=== PATIENT | female | born 1990 | race American Indian/Alaskan Native ===

== ENCOUNTER 2017-07-05 09:26 | Outpatient (CLI) | payer MEDICAID ==
--- NOTE | 2017-07-05 12:04 | Ultrasound Report ---
LIMITED OB ULTRASOUND: well-being. Gestation: [place] Position: Cephalic OBDULIA = 13.4 cm Heart Rate: 133 BPM Estimated gestational age is 39 weeks 0 days. BIOPHYSICAL PROFILE: 2 - breathing movements 2 - movements 2 - posture and tone 2 - Qualitative amniotic fluid volume 8 - TOTAL SCORE OF POSSIBLE 8 Heart Rate (bpm) 133
== END 2017-07-05 12:40 | disposition home or self-care (01) ==
LOC: TRG 09:26
PROVIDERS: ATTEND Obstetrics & Gynecology
DX: Z34.93 Encounter for supervision of normal pregnancy, unspecified, third trimester (principal); Z3A.39 39 weeks gestation of pregnancy
CPT/HCPCS: 59025; 76815; 76819

== ENCOUNTER 2017-07-07 22:19 | Inpatient (IN) | payer MEDICAID ==
[2017-07-07] MEDS ORDERED: BICITRA PO ONE (23:23)
[2017-07-07] MEDS ORDERED: PEPCID IV ONE (23:23)
[2017-07-07] MEDS ORDERED: REGLAN IV ONE (23:23)
[2017-07-07] MEDS ORDERED: LACTATED RINGERS 2,000 ML ONE (23:29)
--- NOTE | 2017-07-07 23:39 | History and Physical Report ---
History of Present Illness Date of examination: 07/07/17 Date of admission: 07/07/17 23:24 Chief complaint: Labor History of present illness: Pt is a 26yo BF EDC 07/12/17; EGA 39 2/7 weeks presents to [facility]&D complaining of RUC's q 3-4 mins. She received care at [facility] since 6 weeks and is scheduled for a Repeat C Section on 07/10/17, however we will proceed with a repeat C Section today since she is currently in labor and declines a . course has been complicated by Vitamin D deficiency and GDM which has been diet controlled and followed by [facility]. records are available and GBS is unknown. Past History Past Medical History: diabetes (GDM), other (anxiety disorder) Past Surgical History: section Family/Genetic History: diabetes, hypertension Social history: no significant social history, single - Obstetrical History Expected Date of Delivery: 07/12/17 Actual Gestation: 39 Week(s) 3 Day(s) : 2 Medications and Allergies Allergies Allergy/AdvReac Type Severity Reaction Status Date / Time No Known Allergies Allergy Verified 04/03/15 00:20 Home Medications Medication Instructions Recorded Confirmed Last Taken Type Ibuprofen [Motrin 800 MG tab] 800 mg PO Q8HR PRN #90 tablet 07/06/15 07/20/15 Rx 1 TAB oxyCODONE /ACETAMINOPHEN [Percocet 1 tab PO Q6HR PRN #30 tablet 07/06/1507/10/15 Rx 5/325 mg] 1 TAB Labetalol [Normodyne TAB] 200 mg PO BID #60 tablet 07/21/15 Unknown Rx Ferrous Sulfate [Feosol 325 MG tab] 325 mg PO BID #60 tablet 07/07/17 Unknown Rx HYDROcodone/APAP 5-325 [[place] 1 each PO Q6HR PRN #30 tablet 07/07/17 Unknown Rx 5/325] Ibuprofen [Motrin] 800 mg PO Q8HR PRN #30 tablet 07/07/17 Unknown Rx Vit Calc,Iron,Folic 1 each PO DAILY #30 tablet 07/07/17 Unknown Rx [ Vitamins] Active Meds: Active Medications Cefazolin Sodium (Ancef/Sterile Water 2 Gm/20 Ml) 2 gm in 20 mls @ 80 mls/hr IV PREOP NR PRN Reason: Protocol Stop: 07/07/17 23:59 Lactated Ringer's (Lactated Ringers) 1,000 mls @ 2,250 mls/hr IV PREOP SANDRA Stop: 07/09/17 00:12 Oxytocin/Sodium Chloride (Pitocin/Ns 20 Unit/1000ml Drip) 20 units in 1,000 mls @ 0 mls/hr IV TITR SANDRA PRN Reason: As Directed Review of Systems All systems: negative - Vital Signs Vital signs: Vital Signs Pulse BP Pulse Ox 98 H 120/77 99 07/07/17 22:39 07/07/17 22:39 07/07/17 22:39 Temp Pulse Resp BP Pulse Ox 45 L 120/77 82 L 07/07/17 23:19 07/07/17 22:39 07/07/17 23:19 - Physical Exam Breasts: Positive: deferred Cardiovascular: Regular rate Lungs: Positive: Clear to auscultation Abdomen: Positive: normal appearance Genitourinary (Female): Positive: normal external genitalia Uterus: Positive: enlarged Extremities: Positive: normal - Obstetrical FHR: category 1 Uterine Contraction Monitor Mode: External Cervical Dilatation: 3 Cervical Effacement Percentage: 90 station: -2 Uterine Contraction Pattern: Regular Uterine Tone Measurement Phase: Contraction Uterine Contraction Intensity: Moderate Results Result Diagrams: 07/07/17 23:20 All other labs normal. Assessment and Plan - Patient Problems (1) with 39 completed weeks gestation Onset Date: 07/07/17 Current Visit: No Status: Acute Plan to address problem: A: IUP @ 39 2/7 weeks in labor Previous C Section GDM - diet controlled Anxiety disorder P: Admit to L&D for repeat C Section BS monitoring (2) Previous section Onset Date: 07/07/17 Current Visit: No Status: Acute (3) Gestational diabetes mellitus Onset Date: 07/07/17 Current Visit: No Status: Acute Qualifiers: Gestational diabetes mellitus control: G Trimester: T (4) Phobic anxiety disorder, unspecified Onset Date: 07/07/17 Current Visit: No Status: Chronic
[2017-07-07] MEDS ORDERED: ANCEF/STERILE WATER 2 GM/20 ML 2 GM/20 ML SYRINGE IV NR (23:45)
[2017-07-07] MEDS ORDERED: LACTATED RINGERS 1,000 ML IV SCH (23:45)
[2017-07-07] MEDS ORDERED: PITOCin/NS 20 UNIT/1000ML DRIP 20 UNITS/1,000 ML BAG IV SCH (23:45)
[2017-07-07 23:52] LABS: Basophils % (Auto) 0.3 % (0.0-1.8); Eosinophils % (Auto) 0.3 % (0.0-4.3); Hematocrit 35.8 % (30.3-42.9); Hemoglobin 11.6 gm/dl (10.1-14.3); Mean Corpuscular HGB Conc 32 % (30-34); Mean Corpuscular Hemoglobin 27 pg (28-32); Mean Corpuscular Volume 83 fl (79-97); Platelet Count 264 K/mm3 (140-440); Red Blood Count 4.31 M/mm3 (3.65-5.03); White Blood Count 7.3 K/mm3 (4.5-11.0)
[2017-07-08] MEDS ORDERED: MORPHINE ONE (00:17)
[2017-07-08] MEDS ORDERED: TORADOL ONE (00:52)
[2017-07-08] MEDS ORDERED: NEO SYNEPHRINE ONE (00:52)
--- NOTE | 2017-07-08 01:29 | Operative Report ---
Operative Report Operative Report: Date of procedure: 07/08/2017 Pre-operative diagnosis: 1. Intrauterine at 39-2/7 weeks in labor 2. Previous section 3. Gestational diabetes mellitus 4. Anxiety disorder Post-operative diagnosis: Same Procedure name(s): Repeat low transverse section Surgeon: Austin Ascencio MD Shipping Lead: None Anesthesia: Spinal anesthesia by Dr. Anders EBL: 500 mls Findings: A 4179 g female Apgars 8 at 1 minute and 9 at 5 minutes. Clear amniotic fluid. Normal uterus. Normal tubes and ovaries bilaterally. Procedure: After the patient was prepped and draped in usual sterile fashion, and after satisfactory level of epidural anesthesia was obtained, the skin knife was used to make a transverse skin incision through the previous skin scar. The incision was excised down to layer of the fascia, which was nicked in the midline and extended laterally using the Bovie cautery. The rectus muscles were dissected off the rectus fascia both superiorly and inferiorly. The rectus bellies in the midline, and the peritoneum was entered under direct visualization. The peritoneal incision was extended superiorly and inferiorly. A bladder flap was created and the bladder blade was then placed. The uterus was scored in a curvilinear linear fashion, entered in the midline revealing clear amniotic fluid. The infant's head was delivered onto the surgical field, and the oropharynx and nasopharynx were bulb suctioned. The rest of the infant's body was delivered, cord was doubly clamped and cut and the infant was handed to the waiting respiratory team. Cord blood was then obtained. The placenta was manually removed from the uterus, and the uterus removed from its normal anatomical position. After gentle uterine lavage, the incision was inspected and found to be without extensions. It was then closed in 2 layers using 0 Vicryl suture in a running interlocking fashion, the second layer imbricating the first. After good hemostasis was achieved, copious amounts or irrigation was performed, and the gutters were suctioned free of blood and blood clots. The Tisseel sealant was sprayed across the uterine incision. The uterus was then returned to its normal anatomical position, and after excellent hemostasis assured, the peritoneum was re-approximated using 3- 0 Vicryl suture in a running interlocking fashion, and then the rectus muscles were re-approximated using 3-0 Vicryl suture in a [id number] configuration. The fascia was then re-approximated using 0 Vicryl suture in running interlocking fashion. The subcutaneous layer was made hemostatic using Bovie cautery, the Tisseel sealant was sprayed across the fascial incision and the skin edges re-approximated using 4-0 Vicryl suture in a sub-cuticular fashion. Patient tolerated the procedure well was transported to recovery in stable condition.
[2017-07-08] MEDS ORDERED: MILK OF MAGNESIA PO PRN (01:31)
[2017-07-08] MEDS ORDERED: TORADOL IV PRN (01:31)
[2017-07-08] MEDS ORDERED: NORCO 5/325 PO PRN (01:31)
[2017-07-08] MEDS ORDERED: TYLENOL PR PRN (01:31)
[2017-07-08] MEDS ORDERED: LANSINOH TP PRN (01:31)
[2017-07-08] MEDS ORDERED: NARCAN 0.4 MG/1 ML IV PRN ×2 (01:31→01:44)
[2017-07-08] MEDS ORDERED: SENOKOT PO PRN (01:31)
[2017-07-08] MEDS ORDERED: TUCKS PAD TP PRN (01:31)
[2017-07-08] MEDS ORDERED: MYLICON PO PRN (01:31)
[2017-07-08] MEDS ORDERED: TYLENOL PO PRN (01:31)
[2017-07-08] MEDS ORDERED: ZOFRAN IV PRN ×2 (01:31→01:44)
[2017-07-08] MEDS ORDERED: PHENERGAN PO PRN (01:44)
[2017-07-08] MEDS ORDERED: DILAUDID IV PRN ×2 (01:44)
[2017-07-08] MEDS ORDERED: PHENERGAN PR PRN (01:44)
--- NOTE | 2017-07-08 01:44 | Post Anesthesia Evaluation ---
- Post Anesthesia Evaluation Patient Participated: Yes Airway Patent: Yes Stable Respiratory Function: Yes Nausea/Vomiting: No Temp > 96.8F: Yes Pain Manageable: Yes Adequeate Hydration: Yes Anesthesia Complications: No
--- NOTE | 2017-07-08 01:44 | Anesthesia Consultation ---
Anesthesia Consult and Med Hx Date of service: 07/08/17 - Airway Anesthetic Teeth Evaluation: Good ROM Head & Neck: Adequate Mental/Hyoid Distance: Adequate Mallampati Class: Class II Intubation Access Assessment: Good - Pulmonary Exam CTA: Yes - Cardiac Exam Cardiac Exam: No Murmur - Pre-Operative Health Status ASA Pre-Surgery Classification: ASA2 Proposed Anesthetic Plan: Spinal - Pulmonary Hx Asthma: No COPD: No Hx Pneumonia: No - Cardiovascular System Hx Hypertension: No - Central Nervous System Hx Seizures: No Hx Psychiatric Problems: No - Endocrine Hx Renal Disease: No Hx End Stage Renal Disease: No Hx Hypothyroidism: No Hx Hyperthyroidism: No - Hematic Hx Anemia: No Hx Sickle Cell Disease: No - Other Systems Hx Alcohol Use: No Hx Cancer: No
[2017-07-08] MEDS ORDERED: PITOCin/NS 20 UNIT/1000ML DRIP 20 UNITS/1,000 ML BAG IV SCH (02:00)
[2017-07-08] MEDS ORDERED: SODIUM CHLORIDE FLUSH SYRINGE 10 ML IV NR (02:00)
[2017-07-08] MEDS ORDERED: fentaNYL-BUPIV 2 MCG/ML-0.125% 200 MCG/100 ML BAG EPIDURAL SCH (02:00)
[2017-07-08] MEDS ORDERED: D5LR 1,000 ML IV SCH (02:00)
[2017-07-08] MEDS ORDERED: SODIUM CHLORIDE FLUSH SYRINGE 10 ML IV PRN (02:00)
[2017-07-08] MEDS ORDERED: METHERGINE IM ONE ×2 (03:19→03:43)
[2017-07-08] MEDS: METHERGINE PO SCH ×3 (06:14→21:32)
[2017-07-08] MEDS: ANCEF/NS 1 GM/50 ML 1 GM/50 ML BAG IV SCH ×2 (08:11→17:00)
--- NOTE | 2017-07-08 09:48 | Progress Note ---
Assessment and Plan A: day of delivery S/P repeat low transverse section. P: Remove Cortes, advance diet, encourage ambulation today. Subjective - Subjective Date of service: 07/08/17 Principal diagnosis: Day of delivery S/P repeat low transverse section Interval history: Patient is day of delivery S/P repeat low transverse section. Patient states she is feeling well. She is ; baby is in NICU. Patient denies headache, cough, chest pain, shortness of breath, abdominal pain, leg pain, or heavy vaginal bleeding. Patient still has Cortes catheter in place and she has not yet been out of bed to ambulate. Patient denies flatus yet. She denies nausea or vomiting. Patient reports: appetite normal, pain well controlled, no flatus : doing well, in NICU Objective - Vital Signs Latest vital signs: Vital Signs Temp Pulse Resp BP Pulse Ox 07/08/17 08:07 98.2 F 96 H 18 117/77 98 07/08/17 05:05 98.3 F 90 20 132/76 97 07/08/17 03:57 100 07/08/17 03:41 108 H 16 129/74 98 07/08/17 03:30 99 H 16 135/70 07/08/17 03:21 111 H 22 142/61 100 07/08/17 03:10 84 17 131/81 77 L 07/08/17 03:00 91 H 12 132/67 100 07/08/17 02:51 16 136/79 80 L 07/08/17 02:40 14 135/57 100 07/08/17 02:30 97.6 F 20 118/57 99 07/08/17 02:20 21 113/65 97 07/08/17 02:10 18 119/62 100 07/08/17 02:00 18 106/62 100 07/08/17 01:50 26 H 100 07/07/17 23:19 45 L 82 L 07/07/17 23:18 63 82 L 07/07/17 23:17 75 82 L 07/07/17 23:16 67 82 L 07/07/17 23:15 53 L 82 L 07/07/17 23:14 102 H 82 L 07/07/17 23:13 85 83 L 07/07/17 23:11 48 L 83 L 07/07/17 23:10 35 L 85 07/07/17 23:09 62 83 L 07/07/17 23:08 252 H 82 L 07/07/17 23:07 119 H 99 07/07/17 23:04 125 H 99 07/07/17 23:01 91 H 99 07/07/17 23:00 110 H 98 07/07/17 22:59 119 H 95 07/07/17 22:56 100 H 99 07/07/17 22:53 123 H 99 07/07/17 22:50 96 H 99 07/07/17 22:45 97 H 99 07/07/17 22:39 98 H 120/77 99 Intake and Output 07/07/17 07/08/17 07/08/17 23:59 07:59 15:59 Other: Weight 78.471 kg - Exam Breasts: Present: deferred Cardiovascular: Present: Regular rate, Normal S1, Normal S2 Lungs: Present: Clear to auscultation Abdomen: Present: normal appearance, soft. Absent: distention, tenderness, guarding, rigidity Uterus: Present: normal, firm, fundal height below umbilicus. Absent: tenderness Extremities: Present: normal. Absent: tenderness, edema Incision: Present: normal, dry, intact, dressed - Labs Labs: Abnormal lab results 07/07/17 Range/Units 23:20 MCH 27 L (28-32) pg [place] % (Auto) 11.3 H (0.0-7.3) %
[2017-07-08 15:28] LABS: Hematocrit 30.2 % (30.3-42.9); Hemoglobin 10.1 gm/dl (10.1-14.3)
[2017-07-08] MEDS: PERCOCET 5/325 PO PRN (21:32)
[2017-07-08] MEDS: MOTRIN PO PRN (21:32)
[2017-07-09] MEDS ORDERED: M-M-R II VACCINE SUB-Q ONE (01:33)
[2017-07-09] MEDS ORDERED: BOOSTRIX IM ONE (06:00)
[2017-07-09] MEDS: METHERGINE PO SCH (06:01)
[2017-07-09] MEDS: MOTRIN PO PRN ×2 (09:09→18:53)
[2017-07-09] MEDS: PRENATAL VITAMIN PO SCH (10:13)
[2017-07-09] MEDS: FEOSOL PO SCH (10:13)
--- NOTE | 2017-07-09 10:27 | Progress Note ---
Assessment and Plan A: /postop day 1 S/P repeat low transverse section. P: Encouraged patient to ambulate. Subjective - Subjective Date of service: 07/09/17 Principal diagnosis: /postop day 1 S/P repeat low transverse section Interval history: Patient is /postop day 1 S/P repeat low transverse section. Patient is doing well. Voiding without difficulty and ambulating well. Tolerating a regular diet without nausea or vomiting. Passing gas. Patient denies headache, chest pain, cough, shortness of breath, nausea or vomiting, abdominal pain, leg pain, or heavy vaginal bleeding. Patient reports: appetite normal, voiding normally, pain well controlled, flatus , ambulating normally [place]: doing well, in NICU Objective - Vital Signs Latest vital signs: Vital Signs Temp Pulse Resp BP BP Pulse Ox 07/09/17 09:09 16 07/09/17 01:14 98.1 F 82 20 102/57 07/08/17 23:25 98.2 F 76 18 104/51 07/08/17 21:17 97.8 F 81 119/77 07/08/17 16:17 98.3 F 83 18 117/79 99 - Exam Breasts: Present: deferred Cardiovascular: Present: Regular rate, Normal S1, Normal S2 Lungs: Present: Clear to auscultation Abdomen: Present: normal appearance. Absent: distention, tenderness, guarding, rigidity Uterus: Present: normal, firm, fundal height below umbilicus. Absent: bogginess , tenderness Extremities: Present: normal. Absent: tenderness, edema Incision: Present: normal, dry, intact, dressed - Labs Labs: Abnormal lab results 07/08/17 07/08/17 07/08/17 Range/Units 08:14 11:26 14:49 Hct 30.2 L (30.3-42.9) % POC Glucose 114 H 138 H (70-105)
[2017-07-09] MEDS: PERCOCET 5/325 PO PRN (20:40)
[2017-07-10] MEDS: MOTRIN PO PRN ×2 (03:59→17:59)
[2017-07-10] MEDS: PERCOCET 5/325 PO PRN ×2 (08:46→17:58)
--- NOTE | 2017-07-10 09:22 | Progress Note ---
Assessment and Plan A: POD # 2 P: Plan discharge in am Subjective - Subjective Principal diagnosis: /postop day 2 S/P repeat low transverse section Patient reports: appetite normal [place]: in NICU Objective - Vital Signs Latest vital signs: Vital Signs Temp Pulse Resp BP Pulse Ox 07/10/17 08:46 20 07/10/17 01:37 98.2 F 77 20 115/61 100 07/09/17 18:53 14 Intake and Output 07/09/17 07/10/17 07/10/17 22:59 06:59 14:59 Intake Total 2400 480 Balance 2400 480 Intake: Oral 2400 480 Other: Total, Intake Amount 2400 480 # Voids Void 5 2 # Bowel Movements 0 - Exam Breasts: Present: deferred Cardiovascular: Present: Regular rate Lungs: Present: Clear to auscultation Abdomen: Present: soft Vulva: both: normal Uterus: Present: normal Extremities: Present: normal Deep Tendon Reflex Grade: Normal +2 - Labs Labs: Abnormal lab results 07/09/17 Range/Units 21:27 POC Glucose 136 H (70-105)
--- NOTE | 2017-07-10 09:23 | Discharge Summary ---
Providers - Providers Date of Admission: 07/07/17 23:24 Date of discharge: 07/11/17 Attending physician: EDWIGE CHOE MD Primary care physician: EDWIGE CHOE MD Hospitalization Reason for admission: active labor Delivery: Procedure: repeat low transverse Discharge diagnosis: IUP at term delivered baby: female Condition at discharge: Good Disposition: DC-01 TO HOME OR SELFCARE Plan - Discharge Medications Prescriptions: Ferrous Sulfate [Feosol 325 MG tab] 325 mg PO BID #60 tablet HYDROcodone/APAP 5-325 [[place] 5/325] 1 each PO Q6HR PRN #30 tablet PRN Reason: Pain Ibuprofen [Motrin] 800 mg PO Q8HR PRN #30 tablet PRN Reason: Moder Pain Unrelieved By [place] Vit Calc,Iron,Folic [ Vitamins] 1 each PO DAILY #30 tablet - Provider Discharge Summary Activity: routine, no sex for 6 weeks, no strenuous exercise Diet: routine Instructions: routine Additional instructions: [] Smoking cessation referral if applicable(refer to patient education folder for contact #) [] Refer to [facility]'s [facility] Center Booklet Call your doctor immediately for: * Fever > 100.5 * Heavy vaginal bleeding ( >1 pad per hour) * Severe persistent headache * Shortness of breath * Reddened, hot, painful area to leg or breast * Drainage or odor from incision. * Keep incision clean and dry at all times and follow doctor's instructions regarding bathing/showering - Follow up plan Follow up: EDWIGE CHOE MD [Primary Care Provider] - 14 Days
[2017-07-10] MEDS: METHERGINE PO SCH (14:00)
[2017-07-10] MEDS: FEOSOL PO SCH (18:07)
[2017-07-10] MEDS: PRENATAL VITAMIN PO SCH (18:07)
[2017-07-11] MEDS: METHERGINE PO SCH (06:37)
[2017-07-11] MEDS: PERCOCET 5/325 PO PRN ×2 (08:02→14:42)
[2017-07-11] MEDS: FEOSOL PO SCH (09:15)
[2017-07-11] MEDS: PRENATAL VITAMIN PO SCH (09:15)
[2017-07-11 19:08] VITALS: BP 128/82
== END 2017-07-11 15:00 | disposition home or self-care (01) | DRG 766 ==
LOC: TRG 22:19 → APU 23:24 → TRG 23:24 → OB 07-08 04:43
PROVIDERS: ADMIT Obstetrics & Gynecology; ATTEND Obstetrics & Gynecology
PROC: 10D00Z1 Extraction of Products of Conception, Low, Open Approach (ICD-10-PCS; principal; 2017-07-08)
PROC: 3E0234Z Introduction of Serum, Toxoid and Vaccine into Muscle, Percutaneous Approach (ICD-10-PCS; 2017-07-09)
DX: O34.211 Maternal care for low transverse scar from previous cesarean delivery (principal); Z3A.39 39 weeks gestation of pregnancy; Z37.0 Single live birth; O99.344 Other mental disorders complicating childbirth; O24.424 Gestational diabetes mellitus in childbirth, insulin controlled; F40.9 Phobic anxiety disorder, unspecified; Z83.3 Family history of diabetes mellitus; Z82.49 Family history of ischemic heart disease and other diseases of the circulatory system; Z23 Encounter for immunization
CPT/HCPCS: 36415; 82962; 85014; 85018; 85025; 86850; 86900; 86901; 90471; 90715; 99211; G0463; J0690; J1885; J2210; J2270; J2370; J2405; J2590; J2765; J7120; J7121; Q0169